=== PATIENT | female | born 1940 | race Caucasian/White ===

== ENCOUNTER → 2018-08-25 | Outpatient (CLI) | payer OTHER | LOC: LAB SHORT 16:12 → LAB 16:12 | DX: R82.90 Unspecified abnormal findings in urine (principal) | CPT/HCPCS: 87086 ==

== ENCOUNTER → 2021-06-11 | Outpatient (CLI) | payer OTHER ==
[2021-06-11 13:18] LABS: Source, Urine Clean Catch
[2021-06-11 15:13] LABS: Appearance, Urine Hazy (Clear); Bilirubin, Urine Neg (Neg); Blood, Urine 3+ (Neg); Color, Urine Yellow (P-Yellow); Glucose Qualitative, Urine Neg (Neg); Ketones, Urine Neg (Neg); Leukocyte Esterase, Urine 3+ (Neg); Nitrite, Urine Pos (Neg); Protein, Urine 1+ (Neg); Urobilinogen, Urine NORM (Normal)
[2021-06-11 16:21] LABS: White Blood Cells, Urine 25-50 /hpf (0-5)
[2021-06-11 16:22] LABS: Bacteria Many /hpf; Squamous Epithelial Cells Few /hpf (Few)
== END | disposition home or self-care (01) ==
LOC: LAB 11:08 → LAB SHORT 11:08
PROVIDERS: Obstetrics & Gynecology
DX: R82.90 Unspecified abnormal findings in urine (principal)
CPT/HCPCS: 81001; 87077; 87086; 87186

== ENCOUNTER → 2023-06-01 | Outpatient (CLI) | payer OTHER | LOC: LAB SHORT 10:06 → LAB EV 10:06 | DX: R30.0 Dysuria (principal) | CPT/HCPCS: 87077; 87086; 87186 ==

== ENCOUNTER 2025-05-14 07:41 | Day surgery (SDC) | payer OTHER ==
[~2025-05-14] VITALS: Ht 157.5 cm; Wt 59.1 kg
[~2025-05-14 07:41] MED LIST: ALBU90OI INH; Balanced Salt Epinephrine Irrigation Solution 500 mL IR SCH; CEPH500 PO; Moxifloxacin HCL 0.5 MG/0.1 ML 0.4MLSYR RIGHTEYE SCH; OMEP20ER PO; Ondansetron 4 MG SoluTab MM PRN; PHENYLEPHRINE\\TROPICAMIDE\\TETRACAINE OPHTHALMIC DILATING SOLN RIGHTEYE PRN; Povidone-Iodine 450 DROP/30 ML Solution ONE; Povidone-Iodine 450 DROP/30 ML Solution RIGHTEYE SCH; Tetracaine HCl/Pf 0.5% Opth Soln 4 ml ONE; diazePAM 5 MG,diazePAM 2 MG PO SCH
[2025-05-14] MEDS ORDERED: MERIBIN5 MG PO (08:44)
--- NOTE | 2025-05-14 09:02 | NUR ---
05/14/25 0902 Dang Marina PT STATES ANXIETY PRIOR TO VALIUM WAS A 10/29. VALIUM 7MG ADMINISTERED AT 0850. PULSE OXIMETRY IN PLACE SHOWING SP02 OF 99% ON RA. TETRACAINE IN AT 0853 PLEDGETT IN AT 0854 PT TOLERATED WELL. SIDE RAILS UP, CALL LIGHT IN REACH
--- NOTE | 2025-05-14 09:25 | NUR ---
05/14/25 0925 Ro Lucas 0920 BP:168/75 HR:53 O2:96% RESP:16
[2025-05-14 09:37] VITALS: BP 155/74
--- NOTE | 2025-05-14 09:37 | NUR ---
05/14/[address] AT BEDSIDE
== END 2025-05-14 09:58 | disposition home or self-care (01) ==
LOC: ORSCSDS 07:41
PROVIDERS: Student in an Organized Health Care Education/Training Program
PROC: 08RJ3JZ Replacement of Right Lens with Synthetic Substitute, Percutaneous Approach (ICD-10-PCS; principal; 2025-05-14 09:30)
DX: H25.813 Combined forms of age-related cataract, bilateral (principal); F41.9 Anxiety disorder, unspecified; I10 Essential (primary) hypertension; K21.9 Gastro-esophageal reflux disease without esophagitis; F32.A Depression, unspecified; R73.03 Prediabetes; Z79.899 Other long term (current) drug therapy; Z87.891 Personal history of nicotine dependence
CPT/HCPCS: A9270; V2632

== ENCOUNTER 2025-05-21 09:47 | Day surgery (SDC) | payer OTHER ==
[~2025-05-21] VITALS: Ht 157.5 cm; Wt 60.4 kg
[~2025-05-21 09:47] MED LIST changes: +MERIBIN5 MG PO; +Moxifloxacin HCL 0.5 MG/0.1 ML 0.4MLSYR LEFTEYE SCH; -Moxifloxacin HCL 0.5 MG/0.1 ML 0.4MLSYR RIGHTEYE SCH; +PHENYLEPHRINE\\TROPICAMIDE\\TETRACAINE OPHTHALMIC DILATING SOLN LEFTEYE PRN; -PHENYLEPHRINE\\TROPICAMIDE\\TETRACAINE OPHTHALMIC DILATING SOLN RIGHTEYE PRN; +Povidone-Iodine 450 DROP/30 ML Solution LEFTEYE SCH; -Povidone-Iodine 450 DROP/30 ML Solution RIGHTEYE SCH
--- NOTE | 2025-05-21 10:38 | NUR ---
05/21/25 Annemarie Bianchi initial anxiety 11/29 per pt report
--- NOTE | 2025-05-21 11:19 | NUR ---
05/21/25 1119 J Luis Lugo BP 161/68, HR 58, O2 SAT 99% WITH BLOWBY O2 AT 10L.
[2025-05-21 11:32] VITALS: BP 100/78
== END 2025-05-21 11:45 | disposition home or self-care (01) ==
LOC: ORSCSDS 09:47
PROVIDERS: Student in an Organized Health Care Education/Training Program
PROC: 08RK3JZ Replacement of Left Lens with Synthetic Substitute, Percutaneous Approach (ICD-10-PCS; principal; 2025-05-21 12:00)
DX: H25.812 Combined forms of age-related cataract, left eye (principal); H35.3122 Nonexudative age-related macular degeneration, left eye, intermediate dry stage; Z96.1 Presence of intraocular lens; F41.9 Anxiety disorder, unspecified; I10 Essential (primary) hypertension; K21.9 Gastro-esophageal reflux disease without esophagitis; R73.03 Prediabetes; F32.A Depression, unspecified; Z79.899 Other long term (current) drug therapy; Z87.891 Personal history of nicotine dependence
CPT/HCPCS: A9270; V2632